=== PATIENT | male | born 1955 | race Caucasian/White ===

== ENCOUNTER → 2019-05-01 | Outpatient (CLI) | payer SELFPAY ==
--- NOTE | 2019-05-01 16:40 | RADIOLOGY REPORT (SQ) ---
EXAM DESCRIPTION: FOOT LEFT COMPLETE COMPLETED DATE/TIME: 05/01/2019 4:04 pm REASON FOR STUDY: CELLULITIS OF LEFT LOWER LIMB L03.116 CELLULITIS OF LEFT LOWER LIMB COMPARISON: None. NUMBER OF VIEWS: Three views. TECHNIQUE: AP, lateral and oblique radiographic images acquired of the left foot. LIMITATIONS: None. FINDINGS: MINERALIZATION: Decreased. BONES: There is irregular cortical lucency and sclerosis involving the 1st MTP joint. There is assoc iated adjacent soft tissue swelling. No additional fractures identified. No scratched superior and plantar calcaneal enthesophytes, small. Mild midfoot osteophytes. JOINTS: No dislocation. SOFT TISSUES: Soft tissue swelling about the forefoot. Vascular calcifications. OTHER: No other significant finding. IMPRESSION: Soft tissue swelling about the 1st MTP joint with associated irregular bony sclerosis a nd cortical lucency highly suggestive of osteomyelitis of the distal 1st metatarsal and proximal phal anx. TECHNICAL DOCUMENTATION: JOB ID: [id number] [employer]- All Rights Reserved Reading location - IP/workstation name: [email or web address]
== END ==
LOC: RAD 15:45
PROVIDERS: ATTEND Nurse Practitioner Family
DX: L03.116 Cellulitis of left lower limb (principal)

== ENCOUNTER 2019-05-04 12:27 | Emergency (ER) | payer MEDICARE ==
--- NOTE | 2019-05-04 14:01 | ER Document Report ---
ED Medical Screen (RME) - General Chief Complaint: Toe Injury Stated Complaint: LEFT GREAT TOE PAIN Time Seen by Provider: 05/04/19 13:54 Primary Care Provider: CHUYITA COLEMAN FNP [Primary Care Provider] - Follow up as needed Mode of Arrival: Ambulatory Information source: Patient Notes: 64-year-old male presented to ED for injury to the left great toe around Chri stmas time. 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 He states he went to [facility] and they have treated him with 2 rounds of antibiotic. They got an x-ray and states that he has infection in the bone and sent him to the emergency room. We will get x-ray blood work and have him seen by another provider. Left great toe is red and swelling. He is diabetic on glipizide metformin. I have greeted and performed a rapid initial assessment of this patient. A comprehensive ED assessment and evaluation of the patient, analysis of test results and completion of medical decision making process will be conducted by an additional ED providers. TRAVEL OUTSIDE OF THE [place] IN LAST 30 DAYS: No - Related Data Allergies/Adverse Reactions: No Known Allergies Allergy (Unverified 05/04/19 13:54) Physical Exam - Vital signs Vitals: Temp Pulse Resp BP Pulse Ox 98.8 F 72 16 152/78 H 97 05/04/19 12:52 05/04/19 12:52 05/04/19 12:52 05/04/19 12:52 05/04/19 12:52 Course - Vital Signs Vital signs: Temp Pulse Resp BP Pulse Ox 98.8 F 72 16 152/78 H 97 05/04/19 12:52 05/04/19 12:52 05/04/19 12:52 05/04/19 12:52 05/04/19 12:52 Doctor's Discharge - Discharge Referrals: CHUYITA COLEMAN FNP [Primary Care Provider] - Follow up as needed
[2019-05-04 14:34] LABS: ABSOLUTE BASOPHILS # (AUTO) 0.1 10^3/uL (0.0-0.2); ABSOLUTE EOSINOPHILS # (AUTO) 0.1 10^3/uL (0.0-0.6); ABSOLUTE LYMPHOCYTES (AUTO) 1.8 10^3/uL (0.5-4.7); ABSOLUTE MONOCYTES (AUTO) 0.5 10^3/uL (0.1-1.4); ABSOLUTE NEUT (AUTO) 4.5 10^3/uL (1.7-8.2); BASOPHILS % (AUTO) 0.7 % (0-2); EOSINOPHILS % (AUTO) 1.7 % (0-6); HEMATOCRIT 32.6 % (37.9-51.0); LYMPHOCYTES % (AUTO) 25.3 % (13-45); MEAN CORPUSCULAR HEMOGLOBIN 29.4 pg (27.0-33.4); MEAN CORPUSCULAR HGB CONC 33.8 g/dL (32.0-36.0); MEAN CORPUSCULAR VOLUME 87 fl (80-97); MONOCYTES % (AUTO) 7.7 % (3-13); PLATELET COUNT 345 10^3/uL (150-450); RED BLOOD COUNT 3.74 10^6/uL (4.35-5.55); RED CELL DISTRIBUTION WIDTH 15.1 % (11.5-14.0); SEGMENTED NEUTROPHILS % (AUTO) 64.6 % (42-78); TOTAL CELLS COUNTED % (AUTO) 100 %
[2019-05-04 14:53] LABS: ALKALINE PHOSPHATASE 113 U/L (38-126); ANION GAP 7 (5-19); ASPARTATE AMINO TRANSFERASE 15 U/L (17-59); BILIRUBIN,TOTAL 0.3 mg/dL (0.2-1.3); BLOOD UREA NITROGEN 18 mg/dL (7-20); CALCIUM 9.5 mg/dL (8.4-10.2); CARBON DIOXIDE 26 mmol/L (22-30); CHLORIDE 102 mmol/L (98-107); GLUCOSE 132 mg/dL (75-110); POTASSIUM 5.3 mmol/L (3.6-5.0); TOTAL PROTEIN 7.4 g/dL (6.3-8.2)
--- NOTE | 2019-05-04 16:25 | RADIOLOGY REPORT (SQ) ---
EXAM DESCRIPTION: FOOT LEFT COMPLETE COMPLETED DATE/TIME: 05/04/2019 3:06 pm REASON FOR STUDY: Pain swelling red left great toe and foot COMPARISON: 05/01/2019 NUMBER OF VIEWS: Three views. TECHNIQUE: AP, lateral and oblique radiographic images acquired of the left foot. LIMITATIONS: None. FINDINGS: Overall normal bone density. At the 1st metatarsophalangeal joint, there is soft tissue swelling, a joint effusion, and bony resor ption at the base of the great toe proximal phalanx and 1st metatarsal head. Fragmentation of the se samoid bones. Periosteal new bone along the 1st metatarsal. Findings are worrisome for septic arthr itis with osteomyelitis. Advanced gout could also cause this appearance. Overall, this is similar c ompared to 05/01/2019. IMPRESSION: Markedly abnormal left 1st metatarsophalangeal joint with effusion, soft tissue swelling , demineralization and fragmentation of the bones of the 1st metatarsophalangeal joint. Findings are worrisome for septic arthritis or advanced gout. TECHNICAL DOCUMENTATION: JOB ID: [id number] [employer]- All Rights Reserved Reading location - IP/workstation name: [email or web address]
[2019-05-04] MEDS ORDERED: LIDOCAINE 1% INJ (10 MG/ML) 10 ML MDV ONE (18:39)
[2019-05-04 19:28] VITALS: BP 139/73
--- NOTE | 2019-05-04 20:32 | ER Document Report ---
ED General - General Chief Complaint: Toe Injury Stated Complaint: LEFT GREAT TOE PAIN Time Seen by Provider: 05/04/19 13:54 Primary Care Provider: CHUYITA COLEMAN FNP [NO LOCAL MD] - Follow up as needed Mode of Arrival: Ambulatory TRAVEL OUTSIDE OF THE [place] IN LAST 30 DAYS: No - HPI Notes: Mr. Orlando is a 64-year-old male presenting with a chief complaint of chronic pain, swelling and redness of his left MTP joint. Patient denies any known history of gout. 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 At the end of the day he noted some mild swelling and redness of his left foot. This became gradually worse over several days and was not associated with any blunt trauma. He denied any development of fever, chills, nausea or vomiting. He was seen subsequently at [facility] and was treated with what sounds like Septra although he does not know the name of the antibiotic. He took this for approximately 2 weeks and noted improvement. After being off the medication for a week he started to have recurrence of identical symptoms. He was subsequently treated with 2 more courses of oral antibiotic with specific agent again unknown to us at this time. He had a plain film performed as an outpatient ordered by [place] [facility] staff 2 days ago was told that he has changes in the bone suggesting a chronic infection. Patient is a type II diabetic and has not been well controlled. Patient's brother has a history of gout. - Related Data Allergies/Adverse Reactions: No Known Allergies Allergy (Unverified 05/04/19 13:54) Home Medications: lisinopril, metformin, glipizide, pravastatin Past Medical History - General Information source: Patient - Social History Smoking Status: Current Every Day Smoker Chew tobacco use (# tins/day): No Frequency of alcohol use: None Drug Abuse: None Family History: Reviewed & Not Pertinent Patient has suicidal ideation: No Patient has homicidal ideation: No - Past Medical History Cardiac Medical History: Reports: Hx Hypercholesterolemia, Hx Hypertension Endocrine Medical History: Reports: Hx Diabetes Mellitus Type 2 Review of Systems - Review of Systems Notes: Constitutional: Negative for fever. HENT: Negative for sore throat. Eyes: Negative for visual changes. Cardiovascular: Negative for chest pain. Respiratory: Negative for shortness of breath. Gastrointestinal: Negative for abdominal pain, vomiting or diarrhea. Genitourinary: Negative for dysuria. Musculoskeletal: As per HPI. Skin: Negative for rash. Neurological: Negative for headaches, weakness or numbness. 10 point ROS negative except as marked above and in HPI. Physical Exam - Vital signs Vitals: Temp Pulse Resp BP Pulse Ox 98.8 F 72 16 152/78 H 97 05/04/19 12:52 05/04/19 12:52 05/04/19 12:52 05/04/19 12:52 05/04/19 12:52 - Notes Notes: GENERAL: Well-developed well-nourished male approximately stated age appearing nontoxic and in no acute distress. SKIN: Good turgor no rashes. HEAD: Normocephalic atraumatic. EYES: PERRLA. EOMI. Conjunctivae and sclerae clear. EARS: CANALS AND TMS CLEAR. NOSE: CLEAR. MOUTH: Moist mucosa. Good dentition. No stridor or edema. No drooling. NECK: Supple. No masses or thyromegaly. No adenopathy. Carotids 2+ without bruits. No JVD. BACK: Symmetrical without tenderness. CHEST: Respirations unlabored. Breath sounds clear and symmetrical. HEART: Regular rhythm. No murmur gallop or rub. ABDOMEN: Soft nontender without masses, organomegaly or rebound. Bowel sounds normally active. No bruits. GENITALIA: Deferred. EXTREMITIES: Chronic fungal thickening of nails on both feet. Patient has r edness and soft tissue swelling over the left first MTP joint. This is moderately tender. There are no ulcerations present. No calf tenderness. Cap refill less than 1.5 seconds. Dorsalis pedis and posterior tibial pulses 2+ and symmetrical. NEUROLOGICAL: GCS 15. Alert and oriented x3. Normal gait. Fluent speech. Cranial nerves II through XII intact. Sensorimotor and cerebellar normal. Normal tone. PSYCHIATRIC: Appropriate affect. Course - Re-evaluation Re-evalutation: 05/04/19 20:33 This man looks truly nontoxic and has no elevation of his peripheral white count and no fever. I requested ESR and CRP as well as a serum urate. I also performed a joint aspiration and have submitted the lab specimens for crystal analysis, Gram stain/culture and cell count with differential. Further care of this patient will be turned over to Dr. Gold at 2030 hrs. pending results of ordered studies. - Vital Signs Vital signs: Temp Pulse Resp BP Pulse Ox 98.4 F 69 16 139/73 H 97 05/04/19 19:27 05/04/19 19:27 05/04/19 19:27 05/04/19 19:27 05/04/19 19:27 - Laboratory Result Diagrams: 05/04/19 14:11 05/04/19 14:11 Laboratory results interpreted by me: 05/04/19 05/04/19 05/04/19 14:11 14:11 14:11 RBC 3.74 L Hgb 11.0 L Hct 32.6 L RDW 15.1 H ESR Sodium 135.3 L Potassium 5.3 H Glucose 132 H AST 15 L C-Reactive Protein 25.4 H 05/04/19 20:25 RBC Hgb Hct RDW ESR 96 H Sodium Potassium Glucose AST C-Reactive Protein - Diagnostic Test Radiology reviewed: Reports reviewed Radiology results interpreted by me: 05/04/19 20:32 Major erosive changes and fragmentation of the left first MTP joint. Radiologist reports differential to include advanced gout, posttraumatic changes, osteomyelitis and joint space infection. Discharge - Discharge Clinical Impression: Gout Qualifiers: Gout site: foot Gout etiology: unspecified cause Chronicity: unspecified Laterality: left Qualified Code(s): M10.9 - Gout, unspecified Condition: Stable Disposition: ELOPED Referrals: CHUYITA COLEMAN FNP [NO LOCAL MD] - Follow up as needed
[2019-05-04 20:38] LABS: CALCIUM PYROPHOSPHATE CRYSTALS NONE OBSERVED; MONOSODIUM URATE CRYSTALS EXTRACELLULAR
[2019-05-04 20:39] LABS: OTHER CRYSTALS NONE OBSERVED
[2019-05-04 20:56] LABS: C-REACTIVE PROTEIN 25.4 mg/L (<10.0); URIC ACID 3.9 mg/dL (3.5-8.5)
--- NOTE | 2019-05-04 22:08 | ER Document Report ---
Doctor's Note Notes: 05/04/19 22:07 This MD went to patient's room to discuss results of fluid analysis with patient which was significant for extracellular monosodium urate crystals. No no one was present in the room; patient has apparently eloped.
== END 2019-05-04 21:37 | disposition left against medical advice (07) ==
LOC: ER 12:27
DX: M10.9 Gout, unspecified (principal); B35.1 Tinea unguium; E78.00 Pure hypercholesterolemia, unspecified; I10 Essential (primary) hypertension; E11.9 Type 2 diabetes mellitus without complications; Z79.84 Long term (current) use of oral hypoglycemic drugs; Z79.899 Other long term (current) drug therapy; F17.200 Nicotine dependence, unspecified, uncomplicated; Z53.20 Procedure and treatment not carried out because of patient's decision for unspecified reasons
CPT/HCPCS: 36415; 80053; 84550; 85025; 85652; 86140; 87070; 87075; 87205; 89060; 99281; 99283

== ENCOUNTER 2019-05-05 12:38 | Emergency (ER) | payer MEDICARE ==
--- NOTE | 2019-05-05 12:47 | ER Document Report ---
ED Medical Screen (RME) - General Stated Complaint: LEFT TOE PAIN Time Seen by Provider: 05/05/19 12:46 Primary Care Provider: DAVIE OLIVARES MD [Primary Care Provider] - Follow up as needed TRAVEL OUTSIDE OF THE [place] IN LAST 30 DAYS: No - HPI Notes: 05/05/19 12:46 Patient is a 64-year-old male who presents per the request of Dr. Fritz for reevaluation after his visit the other day and had a tap done to the left MTP joint area. He otherwise has been having issues with his toe for the past couple months. No fever. I have treated and performed a rapid initial assessment of this patient. A comp rehensive ED assessment and evaluation of the patient, analysis of test results and completion of medical decision making process will be conducted by additional ED providers. PHYSICAL EXAMINATION: GENERAL: Well-appearing, well-nourished and in no acute distress. A&Ox4. Answers questions appropriately. Lt toe: + swelling and erythema noted. - Related Data Allergies/Adverse Reactions: No Known Allergies Allergy (Unverified 05/04/19 13:54) Past Medical History - Past Medical History Cardiac Medical History: Reports: Hx Hypercholesterolemia, Hx Hypertension Endocrine Medical History: Reports: Hx Diabetes Mellitus Type 2 Physical Exam - Vital signs Vitals: Temp Pulse Resp BP Pulse Ox 98.1 F 72 16 150/74 H 100 05/05/19 12:42 05/05/19 12:42 05/05/19 12:42 05/05/19 12:42 05/05/19 12:42 Course - Vital Signs Vital signs: Temp Pulse Resp BP Pulse Ox 98.1 F 72 16 150/74 H 100 05/05/19 12:42 05/05/19 12:42 05/05/19 12:42 05/05/19 12:42 05/05/19 12:42 Doctor's Discharge - Discharge Referrals: DAVIE OLIVARES MD [Primary Care Provider] - Follow up as needed
--- NOTE | 2019-05-05 15:03 | PDOC CONSULTATION ---
Consultation Consult Date: 05/05/19 Provider Consulted: FE MILLER Consult reason:: Left foot pain History of Present Illness Admission Date/PCP: DAVIE OLIVARES MD Patient complains of: Left foot pain History of Present Illness: LONDON DEY is a 64 year old male with history of diabetes. Patient presented to emergency room on 05/04/2019 with swelling and redness of the right great toe at the MTP joint. Patient states it only causes of discomfort with persistent weightbearing and usage. He initially was seen by his primary care physician where he was started on antibiotics but antibiotics failed to provide significant improvement. He was then sent to the emergency room with concern of possible osteomyelitis. Patient denies any specific injury or wound. Denies fever chills or sweats. Pain 0/10. Past Medical History Cardiac Medical History: Reports: Hyperlipidema, Hypertension Endocrine Medical History: Reports: Diabetes Mellitus Type 2 Social History Smoking Status: Current Every Day Smoker Family History Parental Family History Reviewed: No Children Family History Reviewed: No Sibling(s) Family History Reviewed.: No Medication/Allergy Allergies/Adverse Reactions: No Known Allergies Allergy (Unverified 05/04/19 13:54) Review of Systems Constitutional: ABSENT: chills, fever(s), headache(s), weight gain, weight loss Eyes: ABSENT: visual disturbances Ears: ABSENT: hearing changes Cardiovascular: ABSENT: chest pain, dyspnea on exertion, edema, orthropnea, palpitations Respiratory: ABSENT: cough, hemoptysis Gastrointestinal: ABSENT: abdominal pain, constipation, diarrhea, hematemesis, hematochezia, nausea, vomiting Genitourinary: ABSENT: dysuria, hematuria Musculoskeletal: PRESENT: as per HPI Integumentary: ABSENT: rash, wounds Neurological: ABSENT: abnormal gait, abnormal speech, confusion, dizziness, focal weakness, syncope Psychiatric: ABSENT: anxiety, depression, homidical ideation, suicidal ideation Endocrine: ABSENT: cold intolerance, heat intolerance, menstrual abnormalities, polydipsia, polyuria Hematologic/Lymphatic: ABSENT: easy bleeding, easy bruising, lymphadenopathy Physical Exam Vital Signs: Temp Pulse Resp BP Pulse Ox 98.1 F 72 16 150/74 H 100 05/05/19 12:42 05/05/19 12:42 05/05/19 12:42 05/05/19 12:42 05/05/19 12:42 Intake & Output 05/04/19 05/05/19 05/06/19 06:59 06:59 06:59 Weight 82.8 kg General appearance: PRESENT: no acute distress, well-developed, well-nourished Head exam: PRESENT: atraumatic, normocephalic Eye exam: PRESENT: conjunctiva pink, EOMI, PERRLA. ABSENT: scleral icterus Ear exam: PRESENT: normal external ear exam Mouth exam: PRESENT: moist, tongue midline Neck exam: PRESENT: full ROM. ABSENT: carotid bruit, JVD, lymphadenopathy, thyromegaly Cardiovascular exam: PRESENT: RRR. ABSENT: diastolic murmur, rubs, systolic murmur Pulses: PRESENT: normal dorsalis pedis pul, +2 pedal pulses bilateral Vascular exam: PRESENT: normal capillary refill GI/Abdominal exam: PRESENT: normal bowel sounds, soft. ABSENT: distended, guarding, mass, organolmegaly, rebound, tenderness Rectal exam: PRESENT: deferred Musculoskeletal exam: PRESENT: other - Left great toe: Patient has mild erythema with swelling of the MTP joint. Mild swelling of the ankle. No tenderness to palpation throughout the ankle or great toe. No pain with MTP joint range of motion or manipulation. No evidence of open wound or ulceration. Crepitation with attempted range of motion. Instability of the MTP joint. Neurological exam: PRESENT: alert, awake, oriented to person, oriented to place, oriented to time, oriented to situation, CN II-XII grossly intact. ABSENT: motor sensory deficit Psychiatric exam: PRESENT: appropriate affect, normal mood. ABSENT: homicidal ideation, suicidal ideation Skin exam: PRESENT: dry, intact, warm. 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 At this point I have recommended nonoperative treatment and treatment with anti-gout medication. Patient may require operative intervention the future including MTP joint arthrodesis and at this point I have recommended if the redness swelling and pain worsen he should follow-up at the emergency room at that time.
--- NOTE | 2019-05-05 15:22 | ER Document Report ---
ED General - General Chief Complaint: Foot Pain Stated Complaint: LEFT TOE PAIN Time Seen by Provider: 05/05/19 12:46 Primary Care Provider: DAVIE OLIVARES MD [NO LOCAL MD] - Follow up as needed TRAVEL OUTSIDE OF THE [place] IN LAST 30 DAYS: No - HPI Notes: Mr. Orlando is a 64-year-old male presenting with a chief complaint of chronic pain, swelling and redness of his left MTP joint. Patient denies any known history of gout. 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 At the end of the day he noted some mild swelling and redness of his left foot. This became gradually worse over several days and was not associated with any blunt trauma. He denied any development of fever, chills, nausea or vomiting. He was seen subsequently at [facility] and was treated with what sounds like Septra although he does not know the name of the antibiotic. He took this for approximately 2 weeks and noted improvement. After being off the medication for a week he started to have recurrence of identical symptoms. He was subsequently treated with 2 more courses of oral antibiotic with specific agent again unknown to us at this time. He had a plain film performed as an outpatient ordered by [facility] staff 2 days ago was told that he has changes in the bone suggesting a chronic infection. Patient is a type II diabetic and has not been well controlled. Patient's brother has a history of gout. The patient was seen by me in the emergency department last night and had a normal white count and normal serum uric acid level. His sed rate was elevated. His CRP was mildly elevated. I did an arthrocentesis and he had a few monosodium urate crystals present extracellularly. A culture was planted in 24 hours this shows no growth. X-ray of the foot shows advanced deterioration of the MTP joint of the left foot. The patient eloped from the department tonight but is come back in today requesting further management. - Related Data Allergies/Adverse Reactions: No Known Allergies Allergy (Unverified 05/04/19 13:54) Home Medications: Metformin, Glipizide Past Medical History - General Information source: Patient - Social History Smoking Status: Current Every Day Smoker Family History: Reviewed & Not Pertinent Patient has suicidal ideation: No Patient has homicidal ideation: No - Past Medical History Cardiac Medical History: Reports: Hx Hypercholesterolemia, Hx Hypertension Endocrine Medical History: Reports: Hx Diabetes Mellitus Type 2 Review of Systems - Review of Systems Notes: Constitutional: Negative for fever. HENT: Negative for sore throat. Eyes: Negative for visual changes. Cardiovascular: Negative for chest pain. Respiratory: Negative for shortness of breath. Gastrointestinal: Negative for abdominal pain, vomiting or diarrhea. Genitourinary: Negative for dysuria. Musculoskeletal: As per HPI. Skin: Negative for rash. Neurological: Negative for headaches, weakness or numbness. 10 point ROS negative except as marked above and in HPI. Physical Exam - Vital signs Vitals: Temp Pulse Resp BP Pulse Ox 98.1 F 72 16 150/74 H 100 05/05/19 12:42 05/05/19 12:42 05/05/19 12:42 05/05/19 12:42 05/05/19 12:42 - Notes Notes: GENERAL: Well-developed well-nourished appearing in no acute distress. SKIN: Good turgor no rashes. HEAD: Normocephalic atraumatic. EYES: PERRLA. EOMI. Conjunctivae and sclerae clear. EARS: CANALS AND TMS CLEAR. NOSE: CLEAR. MOUTH: Moist mucosa. Good dentition. No stridor or edema. No drooling. NECK: Supple. No masses or thyromegaly. No adenopathy. Carotids 2+ without bruits. No JVD. BACK: Symmetrical without tenderness. CHEST: Respirations unlabored. Breath sounds clear and symmetrical. HEART: Regular rhythm. No murmur gallop or rub. ABDOMEN: Soft nontender without masses, organomegaly or rebound. Bowel sounds normally active. No bruits. GENITALIA: Deferred. EXTREMITIES: Swelling of the left MTP joint with associated redness and tenderness. Sensation of the foot is intact. Dorsalis pedis posterior tibial pulses are 2+. NEUROLOGICAL: GCS 15. Alert and oriented x3. Normal gait. Fluent speech. Cranial nerves II through XII intact. Sensorimotor and cerebellar normal. Normal tone. PSYCHIATRIC: Appropriate affect. Course - Re-evaluation Re-evalutation: 05/05/19 15:33 Consultation was obtained from Dr. Boyd with orthopedics. He reviewed the data and examined the patient and expresses his pain at this is chronic gouty arthritis with advanced deterioration of the joint. He feels it is very unlikely that this is a septic process or osteomyelitis and recommends that we empirically treat the patient with colchicine and have him follow-up with primary care provider. He does not feel that IV antibiotics or admission are necessary or appropriate at this point. His further recommendation is that the patient follow-up with a toe former or a retort firer and referral for this can be arranged by his primary care physician. These recommendations are discussed with the patient and he is agreeable to discharge with outpatient follow-up as recommended. - Vital Signs Vital signs: Temp Pulse Resp BP Pulse Ox 98.1 F 72 16 150/74 H 100 05/05/19 12:42 05/05/19 12:42 05/05/19 12:42 05/05/19 12:42 05/05/19 12:42 Discharge - Discharge Clinical Impression: Chronic gouty arthritis Condition: Stable Disposition: HOME, SELF-CARE Additional Instructions: Gout You have been diagnosed as having gout. Gout is a problem caused by an excess of uric acid, a natural chemical found in the body. The cause of this disease is unknown. Gout arthritis occurs when crystals of uric acid form in the joints. The big toe is the most common joint involved, but any joint can become affected. Persons with gout may also form uric acid kidney stones, resulting in flank pain and blood in the urine. Nodules of uric acid may form under the skin. The first step of treatment is to decrease the inflammation in the joint with antiinflammatory medication. Medication to lower the uric acid level in the blood may then be prescribed. This medication should be taken regularly, as any sudden change in dosage may provoke an attack of gout. Some foods, such as red meat, can provoke an attack in some gout sufferers. Call the doctor if new symptoms arise, or if you do not improve. Gout Diet Changing your diet can decrease the uric acid in your blood. High levels of uric acid cause gouty arthritis and uric acid kidney stones. If you have gout, you should avoid meats that are high in purine. Meat products to avoid include liver, kidneys, and brains. In general, poultry is better than red meats. Seafoods to avoid include anchovies, sardines, mcconnell, mackerel, and scallops. In addition to limiting purine-rich foods, people with gout should limit protein intake to 10-15% of total calories. Carbohydrate intake should be around 50% of total daily calories. Limit fat intake to 30% of total daily calories. Cholesterol intake should be less than 300 mg/day. Maintain or achieve a healthy body weight. Weight loss should be gradual. Rapid weight loss can actually increase uric acid levels temporarily. Alcohol, especially beer, should be avoided. Get plenty of fluids. This dilutes urinary uric acid, and helps prevent uric acid kidney stones. Drink eight to twelve cups of water daily. Take prescribed medication as directed. Return here as needed for new or worsening symptoms: Pain that is worsening or unimproved Uncontrolled vomiting High fever or shaking chills Overall worsening Follow-up with your primary care physician within the next 3 to 5 days and asked him to provide a referral to a retort firer. Prescriptions: Colchicine 0.6 mg PO BID 30 Days #60 capsule Referrals: DAVIE OLIVARES MD [NO LOCAL MD] - Follow up as needed
[2019-05-05 16:19] VITALS: BP 131/73
== END 2019-05-05 16:21 | disposition home or self-care (01) ==
LOC: ER 12:38
DX: M1A.0720 Idiopathic chronic gout, left ankle and foot, without tophus (tophi) (principal); M79.675 Pain in left toe(s); E78.00 Pure hypercholesterolemia, unspecified; I10 Essential (primary) hypertension; E11.9 Type 2 diabetes mellitus without complications
CPT/HCPCS: 99283

== ENCOUNTER → 2019-06-26 | Outpatient (CLI) | payer MEDICARE ==
--- NOTE | 2019-06-26 11:48 | RADIOLOGY REPORT (SQ) ---
EXAM DESCRIPTION: MRI LT LOWER EXTREMITY COMBO IMAGES COMPLETED DATE/TIME: 06/26/2019 9:23 am REASON FOR STUDY: OSTEOMYELEITIS M86.372 CHRONIC MULTIFOCAL OSTEOMYELITIS, LEFT ANKLE AND JUMANA COMPARISON: None. TECHNIQUE: Multiplanar imaging of the left forefoot to include T1-weighted, postcontrast T1-weighted , and T2-weighted images. CONTRAST TYPE AND DOSE: 15 mL Dotarem. RENAL FUNCTION: Not indicated. ACR Type II contrast agent associated with few, if any, unconfounded cases of NSF LIMITATIONS: Motion artifact. FINDINGS: BONE MARROW: Decreased T1 signal, increased T2 signal and enhancement associated with the known fracture of the distal 1st metatarsal shaft. Abnormal signal extends to the base of the 1st me tatarsal. SOFT TISSUES: No joint effusion. Swelling along the medial aspect. Skin ulceration plantar aspect 1 st metatarsophalangeal joint. OTHER: No other significant finding. IMPRESSION: Osteomyelitis 1st metatarsal and proximal 1st phalanx. TECHNICAL DOCUMENTATION: JOB ID: [id number] 2010 [employer]- All Rights Reserved Reading location - IP/workstation name: [email or web address]
== END ==
LOC: RAD 08:15
PROVIDERS: ATTEND Podiatrist Foot & Ankle Surgery
DX: M86.372 Chronic multifocal osteomyelitis, left ankle and foot (principal)
CPT/HCPCS: 82565; 73720; A9576

== ENCOUNTER → 2019-07-25 | Outpatient (CLI) | payer MEDICARE ==
--- NOTE | 2019-07-26 09:48 | RADIOLOGY REPORT (SQ) ---
EXAM DESCRIPTION: PHYSIO ARTERIAL LTD IMAGES COMPLETED DATE/TIME: 07/25/2019 4:20 pm REASON FOR STUDY: PVD I73.9 PERIPHERAL VASCULAR DISEASE, UNSPECIFIED COMPARISON: None. TECHNIQUE: Brachial blood pressure obtained. Pressures obtained of the peripheral vessels at the lev el of the ankle. Ankle brachial indices calculated. LIMITATIONS: None. FINDINGS: RIGHT TAWNYA: 0.67 LEFT TAWNYA: 0.62 IMPRESSION: Moderate obstruction. COMMENT: [facility] NORMAL: Greater than 1.0 MINIMAL DISEASE: 0.9 to 1.0 CLAUDICATION: 0.5 to 0.9 SEVERE ARTERIAL DISEASE: Less than 0.5 [facility] NORMAL: Greater than 1.0 (1.2 If Heavy Calcifications) NORMAL TO MILD ISCHEMIA: 0.8 to 1.0 MODERATE ISCHEMIA: 0.4 to 0.8 SEVERE ISCHEMIA: Less than 0.4 TECHNICAL DOCUMENTATION: JOB ID: [id number] 2010 [employer]- All Rights Reserved Reading location - IP/workstation name: [email or web address]
== END ==
LOC: SP 13:47
PROVIDERS: ATTEND Internal Medicine Infectious Disease
DX: I73.9 Peripheral vascular disease, unspecified (principal)
CPT/HCPCS: 93922

== ENCOUNTER 2019-09-01 05:28 | Day surgery (SDC) | payer MEDICARE ==
[2019-08-29 10:30] LABS: HEMATOCRIT 37.1 % (37.9-51.0); HEMOGLOBIN 12.8 g/dL (13.5-17.0); MEAN CORPUSCULAR HEMOGLOBIN 29.7 pg (27.0-33.4); MEAN CORPUSCULAR HGB CONC 34.7 g/dL (32.0-36.0); MEAN CORPUSCULAR VOLUME 86 fl (80-97); PLATELET COUNT 276 10^3/uL (150-450); RED BLOOD COUNT 4.33 10^6/uL (4.35-5.55); RED CELL DISTRIBUTION WIDTH 15.2 % (11.5-14.0); WHITE BLOOD COUNT 5.8 10^3/uL (4.0-10.5)
--- NOTE | 2019-08-29 10:38 | RADIOLOGY REPORT (SQ) ---
EXAM DESCRIPTION: CHEST PA/LATERAL IMAGES COMPLETED DATE/TIME: 08/29/2019 9:56 am REASON FOR STUDY: COUGH COMPARISON: None. EXAM PARAMETERS: NUMBER OF VIEWS: two views TECHNIQUE: Digital Frontal and Lateral radiographic views of the chest acquired. RADIATION DOSE: NA LIMITATIONS: none FINDINGS: LUNGS AND PLEURA: No opacities, masses or pneumothorax. No pleural effusion. MEDIASTINUM AND HILAR STRUCTURES: No masses or contour abnormalities. HEART AND VASCULAR STRUCTURES: Heart normal size. No evidence for failure. BONES: No acute findings. Degenerative changes in the spine. HARDWARE: None in the chest. OTHER: No other significant finding. IMPRESSION: NO SIGNIFICANT RADIOGRAPHIC FINDING IN THE CHEST. TECHNICAL DOCUMENTATION: JOB ID: [id number] 2010 [employer]- All Rights Reserved Reading location - IP/workstation name: [email or web address]
[2019-08-29 10:54] LABS: ANION GAP 8 (5-19); BLOOD UREA NITROGEN 21 mg/dL (7-20); CALCIUM 10.4 mg/dL (8.4-10.2); CARBON DIOXIDE 29 mmol/L (22-30); CHLORIDE 101 mmol/L (98-107); GLUCOSE 206 mg/dL (75-110); POTASSIUM 5.9 mmol/L (3.6-5.0)
--- NOTE | 2019-08-29 19:38 | EKG REPORT ---
SEVERITY:- ABNORMAL ECG - SINUS RHYTHM NONSPECIFIC T ABNORMALITIES, ANTERIOR LEADS VPC APC : Confirmed by: Pedro Ayers 29-Aug-2019 19:37:54
[~2019-09-01 05:28] MED LIST: ACETAMINOPHEN 325 MG TABLET ONE; ACETAMINOPHEN 325 MG TABLET PO PRN; CEFAZOLIN 2 GM/D5W RTU 2 GM/50 ML RTUPB IV PRN; CEFAZOLIN INJ 1 GM VIAL ONE; IBUPROFEN 800 MG in NORMAL SALINE 250 ML IV PRN; LACTATED RINGERS 1000 ML IV PRN; LIDOCAINE 0.5% INJ-PF (5 MG/ML) 50 ML SDV SUBCUT PRN
[2019-09-01 06:17] LABS: POTASSIUM 4.8 mmol/L (3.6-5.0)
[2019-09-01] MEDS ORDERED: HYDROMORPHONE HCL INJ/PF 2 MG/ML AMPULE ONE (06:47)
[2019-09-01] MEDS ORDERED: ONDANSETRON HCL INJ/PF 4 MG/2 ML SDV ONE (06:47)
[2019-09-01] MEDS ORDERED: MIDAZOLAM 2 MG/2 ML INJ ONE (06:47)
[2019-09-01] MEDS ORDERED: FENTANYL CITRATE INJ/PF 100 MCG/2 ML AMPUL ONE (06:47)
[2019-09-01] MEDS ORDERED: PROPOFOL INJ 200 MG/20 ML VIAL IV ONE (06:48)
[2019-09-01] MEDS ORDERED: LIDOCAINE 1% INJ-PF (10 MG/ML) 30 ML SDV ONE ×2 (07:13→07:15)
[2019-09-01] MEDS ORDERED: BUPIVACAINE HCL 0.25 % INJ/PF (2.5 MG/1 ML) 30 ML VIAL ONE (07:13)
[2019-09-01] MEDS ORDERED: MORPHINE SULFATE 10 MG/ML INJ IV PRN (08:11)
[2019-09-01] MEDS ORDERED: FENTANYL CITRATE INJ/PF 100 MCG/2 ML AMPUL IV PRN ×3 (08:11)
[2019-09-01] MEDS ORDERED: MEPERIDINE HCL/PF INJ 25 MG/1 ML DISP.SYRIN IV PRN (08:11)
[2019-09-01] MEDS ORDERED: PROMETHAZINE HCL INJ 25 MG/1 ML VIAL IV PRN (08:11)
[2019-09-01] MEDS ORDERED: DIPHENHYDRAMINE HCL 50 MG/ML VIAL IV PRN (08:11)
--- NOTE | 2019-09-01 08:40 | Operative Report ---
Nonrecallable Operative Report DATE OF SURGERY: 09/01/19 PREOPERATIVE DIAGNOSIS: Osteomyelitis in the left great toe/left first metatarsal POSTOPERATIVE DIAGNOSIS: Same as above OPERATION: Ray amputation of the left great toe, including a large portion of the left metatarsal SURGEON: YADIEL FORD ANESTHESIA: GA TISSUE REMOVED OR ALTERED: Ray amputation of the left great toe, with accompanying portion of left first metatarsal COMPLICATIONS: None apparent ESTIMATED BLOOD LOSS: Minimal PROCEDURE: Drains/implants: None. Procedure in detail: After informed consent was obtained, the patient was brought to the operating room and laid in the supine position. The area of the left foot was prepped and draped in a normal sterile fashion. A tennis racquet incision was created around the left great toe. This was done after quarter percent Marcaine was infiltrated into the skin and soft tissue. Dissection was carried down to the metatarsal head. The metatarsal head was disarticulated, and the toe was passed off the field. Next, the incision was lengthened up the dorsal surface of the foot, to expose the metatarsal. There was a large amount of chronic inflammatory tissue in the area. An area of bone that appeared healthy was chosen, proximal to the area of osteomyelitis. The metatarsal bone was then divided using the large bone cutters, and removed from the patient. All burs and sharp edges were removed with rongeurs. Next, hemostasis was ensured using electrocautery. The subcutaneous soft tissues were closed using 2-0 Vicryl suture in simple interrupted fashion. The overlying skin was closed in 3-0 nylon suture utilizing both simple interrupted and vertical mattress techniques. A dressing was then placed, and the procedure was concluded. All sponge, instrument, and needle counts were correct x2. Condition: Stable.
--- NOTE | 2019-09-01 08:46 | Discharge Summary ---
Discharge Summary (SDC) - Discharge Final Diagnosis: Osteomyelitis of the left great toe and metatarsal. Date of Surgery: 09/01/19 Discharge Date: 09/01/19 Condition: Stable Forms: ASU Anesthesia D/C Instruction, Discharge POC-Surgical Service Treatment or Instructions: Discharge home. Diet as tolerated. Activity: No weightbearing to the forefoot x6 weeks. Heel weightbearing only on the left. Follow-up with me at [facility] in 10 days. [place] 10/325 mg p.o. every 6 hours as needed for pain. Okay to remove dressing and take a shower on Wednesday. After showering, replace Dave wrap with a clean bandage. Prescriptions: Hydrocodone/Acetaminophen [[place] 10-325 mg Tablet] 1 tab PO Q6HP PRN #28 tablet PRN Reason: For Pain Referrals: YADIEL FORD MD [ACTIVE STAFF] - Discharge Diet: As Tolerated Respiratory Treatments at Home: Deep Breathing/Coughing, Incentive Spirometer Discharge Activity: Other - Heel weightbearing on the left. Nonweightbearing to left forefoot. Report the Following to Your Physician Immediately: Shortness of Breath, Nausea, Vomiting, Increase in Pain, Fever over 101 Degrees, Unusual Bleeding, Redness
[2019-09-01] MEDS ORDERED: HYDROCODONE/ACETAMINOPHEN 10-325 MG TABLET PO PRN (09:16)
[2019-09-01 11:02] VITALS: BP 154/88
== END 2019-09-01 10:45 | disposition home or self-care (01) ==
LOC: OROUT 05:28
PROVIDERS: ATTEND Surgery
DX: M86.672 Other chronic osteomyelitis, left ankle and foot (principal); Z79.899 Other long term (current) drug therapy; E11.9 Type 2 diabetes mellitus without complications; F17.210 Nicotine dependence, cigarettes, uncomplicated; Z79.84 Long term (current) use of oral hypoglycemic drugs; I10 Essential (primary) hypertension; Z03.818 Encounter for observation for suspected exposure to other biological agents ruled out
CPT/HCPCS: 93005; 36415 ×2; 82962; 82947; 84132; 85027; 80048; 88305 ×2; 88311; 71046; 93010; 01480; 28810; U0003; A9270; J2250; J0690; J3010; J2405; J7050; J2704; J1741; 1480; 87635; J1170; J3490

== ENCOUNTER 2019-11-28 08:14 | Day surgery (SDC) | payer MEDICARE ==
[2019-11-24 11:52] LABS: ABSOLUTE BASOPHILS # (AUTO) 0.1 10^3/uL (0.0-0.2); ABSOLUTE EOSINOPHILS # (AUTO) 0.1 10^3/uL (0.0-0.6); ABSOLUTE LYMPHOCYTES (AUTO) 1.4 10^3/uL (0.5-4.7); ABSOLUTE MONOCYTES (AUTO) 0.6 10^3/uL (0.1-1.4); ABSOLUTE NEUT (AUTO) 6.6 10^3/uL (1.7-8.2); BASOPHILS % (AUTO) 0.7 % (0-2); EOSINOPHILS % (AUTO) 1.1 % (0-6); HEMATOCRIT 32.5 % (37.9-51.0); LYMPHOCYTES % (AUTO) 16.3 % (13-45); MEAN CORPUSCULAR HEMOGLOBIN 30.6 pg (27.0-33.4); MEAN CORPUSCULAR HGB CONC 33.8 g/dL (32.0-36.0); MEAN CORPUSCULAR VOLUME 90 fl (80-97); MONOCYTES % (AUTO) 7.1 % (3-13); PLATELET COUNT 302 10^3/uL (150-450); RED BLOOD COUNT 3.59 10^6/uL (4.35-5.55); RED CELL DISTRIBUTION WIDTH 13.9 % (11.5-14.0); SEGMENTED NEUTROPHILS % (AUTO) 74.8 % (42-78); TOTAL CELLS COUNTED % (AUTO) 100 %; WHITE BLOOD COUNT 8.8 10^3/uL (4.0-10.5)
[2019-11-24 12:12] LABS: ANION GAP 7 (5-19); BLOOD UREA NITROGEN 23 mg/dL (7-20); CALCIUM 9.5 mg/dL (8.4-10.2); CARBON DIOXIDE 29 mmol/L (22-30); CHLORIDE 102 mmol/L (98-107); GLUCOSE 258 mg/dL (75-110); POTASSIUM 5.1 mmol/L (3.6-5.0)
--- NOTE | 2019-11-24 23:35 | EKG REPORT ---
SEVERITY:- OTHERWISE NORMAL ECG - SINUS RHYTHM ATRIAL PREMATURE COMPLEX : Confirmed by: Carley Gonzales MD 24-Nov-2019 23:34:31
[~2019-11-28 08:14] MED LIST changes: -ACETAMINOPHEN 325 MG TABLET ONE; -CEFAZOLIN INJ 1 GM VIAL ONE
[2019-11-28] MEDS ORDERED: CEFAZOLIN 2 GM/D5W RTU 2 GM/50 ML RTUPB IV ONE (08:54)
[2019-11-28] MEDS ORDERED: ACETAMINOPHEN 325 MG TABLET ONE (08:54)
[2019-11-28] MEDS ORDERED: LIDOCAINE 2% INJ-PF (20 MG/ML) 2 ML AMPUL ONE (09:09)
[2019-11-28] MEDS ORDERED: ONDANSETRON HCL INJ/PF 4 MG/2 ML SDV ONE (09:09)
[2019-11-28] MEDS ORDERED: LIDOCAINE 1% INJ-PF (10 MG/ML) 30 ML SDV ONE (10:09)
[2019-11-28] MEDS ORDERED: BUPIVACAINE HCL 0.25 % INJ/PF (2.5 MG/1 ML) 30 ML VIAL ONE (10:09)
[2019-11-28] MEDS ORDERED: FENTANYL CITRATE INJ/PF 100 MCG/2 ML AMPUL ONE (10:10)
[2019-11-28] MEDS ORDERED: PROPOFOL INJ 200 MG/20 ML VIAL IV ONE (10:11)
[2019-11-28] MEDS ORDERED: MIDAZOLAM 2 MG/2 ML INJ ONE (10:11)
[2019-11-28] MEDS ORDERED: MORPHINE SULFATE 10 MG/ML INJ IV PRN (10:47)
[2019-11-28] MEDS ORDERED: PROMETHAZINE HCL INJ 25 MG/1 ML VIAL IV PRN ×2 (10:47)
[2019-11-28] MEDS ORDERED: DIPHENHYDRAMINE HCL 50 MG/ML VIAL IV PRN (10:47)
[2019-11-28] MEDS ORDERED: MEPERIDINE HCL/PF INJ 25 MG/1 ML DISP.SYRIN IV PRN (10:47)
[2019-11-28] MEDS ORDERED: FENTANYL CITRATE INJ/PF 100 MCG/2 ML AMPUL IV PRN ×3 (10:47)
[2019-11-28] MEDS ORDERED: OXYCODONE-ACETAMINOPHEN 5-325 MG TABLET PO PRN ×2 (10:47)
--- NOTE | 2019-11-28 10:59 | Operative Report ---
Nonrecallable Operative Report DATE OF SURGERY: 11/28/19 PREOPERATIVE DIAGNOSIS: Osteomyelitis left second toe, diabetic ulcer left second toe POSTOPERATIVE DIAGNOSIS: Same as above OPERATION: Ray amputation of the left second toe SURGEON: YADIEL FORD 1ST PROCESS DEVELOPMENT TECHNICIAN: CURT STONE ANESTHESIA: LMAC TISSUE REMOVED OR ALTERED: Left second toe COMPLICATIONS: None apparent ESTIMATED BLOOD LOSS: Minimal PROCEDURE: Drains/implants: None. Procedure in detail: After informed consent was obtained, the patient was brought to the operating room and laid in the supine position. The area of the left foot was prepped and draped in a normal sterile fashion. 1% lidocaine mixed with quarter percent Marcaine was injected and infiltrated into the foot. A tennis racquet incision was created around the left second toe. Dissection was carried down to the joint. The toe was disarticulated, passed off the field, and sent to pathology. The soft tissues over the metatarsal were then divided. The metatarsal head was cleared of soft tissue. The metatarsal head was then divided using the large bone cutters. The subcutaneous tissues were then reapproximated using 2-0 Vicryl suture in simple interrupted fashion. The overlying skin was reapproximated using 3-0 nylon in simple interrupted fashion. A dressing was placed, and the procedure was concluded. All sponge, instrument, and needle counts were correct x2. Condition: Stable.
--- NOTE | 2019-11-28 11:04 | Discharge Summary ---
Discharge Summary (SDC) - Discharge Final Diagnosis: Osteomyelitis of the left second toe Date of Surgery: 11/28/19 Discharge Date: 11/28/19 Condition: Stable Treatment or Instructions: Discharge home. Diet as tolerated. Activity: Nonweightbearing to the forefoot x6 weeks. Follow-up at [facility] in 7 to 10 days. [place] 5/325 mg p.o. every 6 hours as needed for pain. Okay to shower starting on . No tub baths or swimming pools x2 weeks. Prescriptions: Hydrocodone/Acetaminophen [[place] 5-325 mg Tablet] 1 tab PO Q6HP PRN #10 tablet PRN Reason: For Pain Referrals: CHUYITA COLEMAN FNP [Primary Care Provider] - Discharge Diet: As Tolerated Respiratory Treatments at Home: Deep Breathing/Coughing, Incentive Spirometer Discharge Activity: Balance Activity w/Rest, Other - See discharge instruction Home Care Assistance: None Needed Report the Following to Your Physician Immediately: Shortness of Breath, Nausea, Vomiting, Increase in Pain, Fever over 101 Degrees, Unusual Bleeding, Redness
[2019-11-28 15:54] VITALS: BP 141/83
== END 2019-11-28 12:50 | disposition home or self-care (01) ==
LOC: OROUT 08:14
PROVIDERS: ATTEND Surgery
DX: M86.9 Osteomyelitis, unspecified (principal); E11.9 Type 2 diabetes mellitus without complications; I10 Essential (primary) hypertension; F17.210 Nicotine dependence, cigarettes, uncomplicated; Z86.14 Personal history of Methicillin resistant Staphylococcus aureus infection; Z03.818 Encounter for observation for suspected exposure to other biological agents ruled out
CPT/HCPCS: 28810; 93005; 36415 ×2; 82947; 84132; 85025; 80048; 83036; 88305 ×2; 88311; 93010; 01480; U0003; A9270; J2250; J3010; J3490 ×2; J2405; J7050; J2704; J0690; J1741; C9803; 1480; 87635